=== PATIENT | female | born 1985 | race Caucasian/White ===

== ENCOUNTER 2017-11-25 09:36 | Day surgery (SDC) | payer OTHER ==
[2016-01-26 07:43] VITALS: BMI 23.8
[2017-11-25] MEDS ORDERED: Midazolam 2 MG/2 ML VIAL ONE (11:38)
[2017-11-25] MEDS ORDERED: Propofol 10 mg/ml Inj (20 ML) ONE ×2 (11:38→11:50)
[2017-11-25] MEDS ORDERED: Lidocaine Hydrochloride 5 ML INJ ONE (11:50)
[2017-11-25 12:27] VITALS: O2SAT 100
[2017-11-25 13:10] VITALS: BP 112/74; PULSE 84; RESP 16; TEMP 98.4
== END 2017-11-25 13:05 | disposition home or self-care (01) ==
LOC: C.ENDO 09:36
PROVIDERS: ATTEND Internal Medicine Gastroenterology
DX: K29.00 Acute gastritis without bleeding (principal); K59.00 Constipation, unspecified; K64.8 Other hemorrhoids; K20.9 Esophagitis, unspecified; K31.9 Disease of stomach and duodenum, unspecified
CPT/HCPCS: 43239; 45378; 84703; 88305; J2250; J2704